=== PATIENT | female | born 1965 | race Caucasian/White ===

== ENCOUNTER → 2016-09-29 | Outpatient (CLI) | payer OTHER ==
[~2016-09-29] MED LIST: ADVINUNK; ATV1 PO; FLUO20CA35 PO
--- NOTE | 2016-09-29 13:32 | DIAGNOSTIC IMAGING REPORT ---
LEFT WRIST MIN 3 VIEWS ROUTINE CLINICAL HISTORY: WRIST PAIN pain COMPARISON: None. DISCUSSION: Nondisplaced linear cortical fracture distal radius. Mild degenerative change of the remaining osseous structures. Mild soft tissue edema. No evidence for dislocation. Mild soft tissue edema IMPRESSION: Nondisplaced linear hairline cortical fracture distal radius. Electronically signed by: Vance Kenny M.D. 09/29/2016 1:30 PM Dictated Date/Time: 09/29/2016 1:28 PM
== END | disposition home or self-care (01) ==
LOC: C.RAD 12:56
PROVIDERS: ATTEND Physician Assistant
DX: S52.502A Unspecified fracture of the lower end of left radius, initial encounter for closed fracture (principal); W19.XXXA Unspecified fall, initial encounter

== ENCOUNTER → 2017-07-01 | Outpatient (CLI) | payer OTHER ==
--- NOTE | 2017-07-01 22:57 | DIAGNOSTIC IMAGING REPORT ---
LEFT KNEE 2 VIEWS. CLINICAL HISTORY: Left knee pain. FINDINGS: AP and crosstable lateral views of the left knee are obtained. No prior studies are available for comparison at the time of dictation. The skeletal structures are well mineralized. No fracture is identified. The joint spaces of the knee are maintained. There is a large joint effusion. Soft tissue swelling is seen around the knee. IMPRESSION: Soft tissue swelling and large joint effusion. No left knee fracture is identified. Electronically signed by: Raul Harper M.D. 07/01/2017 1:14 PM Dictated Date/Time: 07/01/2017 1:13 PM
== END | disposition home or self-care (01) ==
LOC: C.RAD 12:35
PROVIDERS: ATTEND Physician Assistant
DX: M25.562 Pain in left knee (principal); M25.462 Effusion, left knee